=== PATIENT | female | born 2000 | race Caucasian/White ===

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

== ENCOUNTER 2024-10-11 16:00 | Emergency (ER) | payer OTHER ==
--- NOTE | 2024-10-11 16:16 | ED ---
Syncope HPI - General Stated Complaint: unresponsive Time Seen by Provider: 10/11/24 16:05 Source: RN notes reviewed, old records reviewed Mode of arrival: ambulatory Limitations: no limitations - History of Present Illness Initial Comments: This is a 23-year-old female to the ER for evaluation today. This patient presents today for evaluation regards to what is suspected syncopal event here in the ER. Syncopal versus decreased level of responsiveness noted by boyfriend who is at bedside as they were leaving a family barbecue. Patient is known 8 weeks denying drugs or alcohol, and a little confused today and looking a little pale per boyfriend Complaint: loss of consciousness -: days(s) Prodromal Symptoms: none -: second(s) Witnessed: no Injuries Sustained Associated with Event: None Current Symptoms: none History: previous syncopal episode Context: at rest Treatments Prior to Arrival: none - Related Data Home Medications Medication Instructions Recorded Confirmed Clotrimazole [Clotrimazole AF] 1 applic TOPICAL HS 10/11/24 10/11/24 [id number] Acid 1 cap PO DAILY 10/11/24 10/11/24 [-U Capsule (formulary)] Allergies Allergy/AdvReac Type Severity Reaction Status Date / Time No Known Allergies Allergy Verified 10/11/24 16:47 Review of Systems ROS Statement: Those systems with pertinent positive or pertinent negative responses have been documented in the HPI. ROS Other: All systems not noted in ROS Statement are negative. Past Medical History Past Medical History: No Reported History History of Any Multi-Drug Resistant Organisms: None Reported Past Surgical History: No Surgical Hx Reported Past Psychological History: ADD/ADHD Past Alcohol Use History: None Reported Past Drug Use History: None Reported General Exam General appearance: alert, in no apparent distress Head exam: Present: atraumatic, normocephalic, normal inspection Eye exam: Present: normal appearance, PERRL, EOMI. Absent: scleral icterus, conjunctival injection, periorbital swelling ENT exam: Present: normal exam, mucous membranes moist Neck exam: Present: normal inspection. Absent: tenderness, meningismus, lymphadenopathy Respiratory exam: Present: normal lung sounds bilaterally. Absent: respiratory distress, wheezes, rales, rhonchi, stridor Cardiovascular Exam: Present: regular rate, normal rhythm, normal heart sounds. Absent: systolic murmur, diastolic murmur, rubs, gallop, clicks GI/Abdominal exam: Present: soft, normal bowel sounds. Absent: distended, te nderness, guarding, rebound, rigid Extremities exam: Present: normal inspection, full ROM, normal capillary refill. Absent: tenderness, pedal edema, joint swelling, calf tenderness Back exam: Present: normal inspection Neurological exam: Present: alert, oriented X3, CN II-XII intact Psychiatric exam: Present: normal affect, normal mood Skin exam: Present: warm, dry, intact, normal color. Absent: rash Course Vital Signs 10/11/24 16:13 Temperature 97.6 F Pulse Rate 75 Respiratory 16 Rate Blood Pressure 110/69 O2 Sat by Pulse 100 Oximetry - Reevaluation(s) Reevaluation #1: 10/11/24 17:57 Medical records reviewed Reevaluation #2: 10/11/24 17:57 No recurrent syncope no recurrent seizure here in the ER Reevaluation #3: 10/11/24 17:57 Patient informed of results questions answered Reevaluation #4: Was pt. sent in by a medical professional or institution (, PA, MEDICAID ANALYST, urgent care, hospital, or fpc...) When possible be specific @ -no Did you speak to anyone other than the patient for history (EMS, parent, family, police, friend...)? What history was obtained from this source @ -no Did you review nursing and triage notes (agree or disagree)? Why? @ -agree Are old charts reviewed (outside hosp., previous admission, EMS record, old EKG, old radiological studies, urgent care reports/EKG's, fpc records)? Report findings @ -yes Differential Diagnosis (chest pain, altered mental status, abdominal pain women, abdominal pain men, vaginal bleeding, weakness, fever, dyspnea, syncope, headache, dizziness, GI bleed, back pain, seizure, CVA, palpatations, mental health, musculoskeletal)? @ -prior EKG interpreted by me (3pts min.). @ -yes X-rays interpreted by me (1pt min.). @ -yes negative for acute disease CT interpreted by me (1pt min.). @ -no U/S interpreted by me (1pt. min.). @ -no What testing was considered but not performed or refused? (CT, X-rays, U/S, labs)? Why? @ -none What meds were considered but not given or refused? Why? @ -none Did you discuss the management of the patient with other professionals (professionals i.e. , PA, MEDICAID ANALYST, lab, RT, psych nurse, social media strategist, director of neurology, teacher, audit officer, bottle caser)? Give summary @ -no Was smoking cessation discussed for >3mins.? @ -no Was critical care preformed (if so, how long)? @ -no Were there social determinants of health that impacted care today? How? (Homelessness, low income, unemployed, alcoholism, drug addiction, transportation, low edu. Level, literacy, decrease access to med. care, [facility], rehab)? @ -none Was there de-escalation of care discussed even if they declined (Discuss DNR or withdrawal of care, Hospice)? DNR status @ -no What co-morbidities impacted this encounter? (DM, HTN, Smoking, COPD, CAD, Cancer, CVA, ARF, Chemo, Hep., AIDS, mental health diagnosis, sleep apnea, morbid obesity)? @ -none Was patient admitted / discharged? Hospital course, mention meds given and route, prescriptions, significant lab abnormalities, going to OR and other pertinent info. @ - Undiagnosed new problem with uncertain prognosis? @ -no Drug Therapy requiring intensive monitoring for toxicity (Heparin, Nitro, Insulin, Cardizem)? @ -no Were any procedures done? @ -no Diagnosis/symptom? @ - Acute, or Chronic, or Acute on Chronic? @ -Acute Uncomplicated (without systemic symptoms) or Complicated (systemic symptoms)? @ -Complicated Side effects of treatment? @ -no Exacerbation, Progression, or Severe Exacerbation? @ -exacerbation Poses a threat to life or bodily function? How? (Chest pain, USA, NV, pneumonia, PE, COPD, DKA, ARF, appy, cholecystitis, CVA, Diverticulitis, Homicidal, Suicidal, threat to staff... and all critical care pts) @ -yes Reevaluation #5: Differential Seizure: Recurrent seizure disorder, febrile seizure, alcohol withdrawal, stimulants, meningitis, encephalitis, intercranial hemorrhage, intracranial tumor, stroke, eclampsia, thyrotoxicosis, hypocalcemia, hyponatremia, hypernatremia, hypomagnesemia, psychogenic, this is not meant to be an all-inclusive list. Differential Syncope: Valvular disease, hypertrophic cardiomyopathy, pulmonary embolism, tamponade, tachycardia, bradycardia, NV, hypovolemia, hemorrhage, dissection, anemia, intracranial hemorrhage, seizure, hypoglycemia, carbon monoxide poisoning, this is not meant to be an all-inclusive list. EKG Findings - EKG Comments: EKG Findings:: EKG is sinus 64 SC 116 QRS 88 QTc 386 - EKG Results: EKG: interpreted by [facility] Medical Decision Making - Medical Decision Making 23 female known coming in for altered mental status with possible syncope versus seizure unable to ascertain this was the patient's first seizure that is the case no headache chest pain shortness of breath abdominal pain currently patient's symptoms are improving throughout ER stay and she can be discharged home - Lab Data Result diagrams: 10/11/24 16:51 10/11/24 16:51 Lab Results 10/11/24 10/11/24 10/11/24 Range/Units 16:23 16:51 16:51 WBC 10.28 H (4.50-10.00) 10*3/uL RBC 4.01 L (4.10-5.20) 10*6/uL Hgb 12.6 (12.0-15.0) g/dL Hct 36.3 L (37.2-46.3) % MCV 90.5 (80.0-97.0) fL MCH 31.4 (27.0-32.0) pg MCHC 34.7 (32.0-37.0) g/dL Plt Count 243 (140-440) 10*3/uL MPV 9.7 (9.5-12.2) fL Immature Gran % (Auto) 0.3 % Neutrophils % 74.9 % Lymphocytes % 17.6 % Monocytes % 6.6 % Eosinophils % 0.3 % Basophils % 0.3 % Immature Gran # 0.03 (0.00-0.04) 10*3/uL Neutrophils # 7.70 (1.80-7.70) 10*3/uL Lymphocytes # 1.81 (0.90-5.00) 10*3/uL Monocytes # 0.68 (0.20-1.00) 10*3/uL Eosinophils # 0.03 L (0.04-0.35) 10*3/uL Basophils # 0.03 (0.00-0.10) 10*3/uL Sodium 135 L (137-145) mmol/L Potassium 3.9 (3.5-5.1) mmol/L Chloride 103 (98-107) mmol/L Carbon Dioxide 21 L (22-30) mmol/L Anion Gap 11 mmol/L BUN 11 (7-17) mg/dL Creatinine 0.50 L (0.52-1.04) mg/dL Est GFR (CKD-EPI)AfAm >90 (>60 ml/min/1.73 sqM) Est GFR (CKD-EPI)NonAf >90 (>60 ml/min/1.73 sqM) Glucose 87 (74-99) mg/dL POC Glucose (mg/dL) 83 (70-110) mg/dL POC Glu Naturalist ID Adrien Sofia Calcium 9.2 (8.4-10.2) mg/dL Total Bilirubin 0.3 (0.2-1.3) mg/dL AST 20 (14-36) U/L ALT 11 (4-34) U/L Alkaline Phosphatase 39 (38-126) U/L Total Protein 6.9 (6.3-8.2) g/dL Albumin 4.3 (3.5-5.0) g/dL Serum Alcohol <10 mg/dL Disposition Clinical Impression: Altered mental state, Narrative: Syncope v Seizure Disposition: HOME SELF-CARE Instructions (If sedation given, give patient instructions): Syncope (ED), Nonepileptic Seizures (ED), (ED) Is patient prescribed a controlled substance at d/c from ED?: No Referrals: None,Stated [Primary Care Provider] - 1-2 days Time of Disposition: 18:00
[2024-10-11 16:24] LABS: Glucose,Whole Blood 83 mg/dL (70-110)
[2024-10-11 16:26] VITALS: RESP 16
[2024-10-11 17:10] LABS: Basophils # (A) 0.03 10*3/uL (0.00-0.10); Basophils % (A) 0.3 %; Eosinophils # (A) 0.03 10*3/uL (0.04-0.35); Eosinophils % (A) 0.3 %; HCT 36.3 % (37.2-46.3); HGB 12.6 g/dL (12.0-15.0); Lymphocytes # (A) 1.81 10*3/uL (0.90-5.00); Lymphocytes % (A) 17.6 %; MCH 31.4 pg (27.0-32.0); MCHC 34.7 g/dL (32.0-37.0); MCV 90.5 fL (80.0-97.0); Monocytes # (A) 0.68 10*3/uL (0.20-1.00); Monocytes % (A) 6.6 %; Neutrophils # (A) 7.70 10*3/uL (1.80-7.70); Neutrophils % (A) 74.9 %; Platelet Count 243 10*3/uL (140-440); RBC 4.01 10*6/uL (4.10-5.20); RDW 11.9 % (11.5-14.5); WBC 10.28 10*3/uL (4.50-10.00)
[2024-10-11] MEDS: SODIUM CHLORIDE 0.9% 1,000 ML IV ONE (17:14)
[2024-10-11 17:33] LABS: ALT 11 U/L (4-34); AST 20 U/L (14-36); African American GFR (CKD) >90 (>60 ml/min/1.73 sqM); Albumin 4.3 g/dL (3.5-5.0); Alkaline Phosphatase 39 U/L (38-126); Anion Gap 11 mmol/L; Blood Urea Nitrogen 11 mg/dL (7-17); Calcium 9.2 mg/dL (8.4-10.2); Carbon Dioxide 21 mmol/L (22-30); Chloride 103 mmol/L (98-107); Glucose 87 mg/dL (74-99); Non-African American GFR(CKD) >90 (>60 ml/min/1.73 sqM); Potassium 3.9 mmol/L (3.5-5.1); Sodium 135 mmol/L (137-145); Total Protein 6.9 g/dL (6.3-8.2)
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
[2024-10-11 18:17] LABS: INR 1.1 (<1.2); Partial Thromboplastin Time 22.3 sec (22.0-30.0); Prothrombin Time 11.6 sec (10.0-12.5)
[2024-10-11 18:21] VITALS: TEMP 98.8
[2024-10-11 18:22] LABS: HCG,Quantitative Serum 68904.1 mIU/mL
[2024-10-11 18:38] VITALS: BP 111/70; PULSE 74
== END 2024-10-11 18:41 | disposition home or self-care (01) ==
LOC: EC 16:00
DX: O26.891 Other specified pregnancy related conditions, first trimester (principal); R41.82 Altered mental status, unspecified; Z3A.08 8 weeks gestation of pregnancy
CPT/HCPCS: 99284; 96360; 36415; 86900; 86901; 80053; 85025; 85610; 85730; 86850; 84702; 76801; G0480; 80320